=== PATIENT | female | born 1960 | race Caucasian/White ===

== ENCOUNTER → 2016-08-29 17:19 | Outpatient (CLI) | payer BC ==
[2012-08-06 07:57] VITALS: BMI 29.3
== END | disposition home or self-care (01) ==
LOC: D.MAMMO 14:00
DX: Z12.31 Encounter for screening mammogram for malignant neoplasm of breast (principal)

== ENCOUNTER 2017-11-23 15:45 | Outpatient (CLI) | payer BC ==
[2012-08-06 07:57] VITALS: BMI 29.3
== END 2017-11-23 16:00 ==
LOC: D.MAMMO 15:45
DX: Z12.31 Encounter for screening mammogram for malignant neoplasm of breast (principal)

== ENCOUNTER 2018-12-19 09:00 | Outpatient (CLI) | payer BC ==
[2012-08-06 07:57] VITALS: BMI 29.3
== END 2018-12-19 10:00 | disposition home or self-care (01) ==
LOC: D.MAMMO 09:00
PROVIDERS: ATTEND Obstetrics & Gynecology
DX: Z12.31 Encounter for screening mammogram for malignant neoplasm of breast (principal)

== ENCOUNTER 2020-01-12 15:12 | Outpatient (CLI) | payer BC ==
[2012-08-06 07:57] VITALS: BMI 29.3
== END 2020-01-12 23:59 ==
LOC: D.MAMMO 15:12
PROVIDERS: ATTEND Emergency Medicine
DX: Z12.31 Encounter for screening mammogram for malignant neoplasm of breast (principal)